=== PATIENT | female | born 1955 | race African-American/Black ===

== ENCOUNTER 2022-11-01 22:14 | Emergency (ER) | payer OTHER ==
[~2022-11-01] VITALS: Ht 160 cm; Wt 84.0 kg
[2022-11-01 22:27] VITALS: O2SAT 96
[2022-11-01 23:48] LABS: CHLORIDE 105 mEq/L (98-107); INDEX HEMOLYSI 1 (1-3); INDEX ICTERIC 1 (1-4); INDEX LIPEMIC 1 (1-3); POTASSIUM 3.1 mEq/L (3.5-5.1); SODIUM 139 mEq/L (136-145)
[2022-11-01 23:51] LABS: BASOPHILS % 0.4 % (0.0-2.0); EOSINOPHILS % 0.1 % (0.0-5.0); HEMATOCRIT. 37.4 % (36.0-48.0); HEMOGLOBIN. 11.9 g/dL (12.0-16.0); LYMPHOCYTES % 10.7 % (20.0-50.0); MEAN CORPUSCULAR HGB CONC 31.9 g/dL (31.0-37.0); MEAN CORPUSCULAR VOLUME 87.8 fL (81.0-99.0); MEAN PLATELET VOLUME 9.2 fl (7.4-10.4); MONOCYTES % 6.3 % (2.0-8.0); NEUTROPHILS % 82.5 % (40.0-76.0); PLATELET 208 x1000/uL (130-400); RED BLOOD CELL COUNT 4.26 mill/uL (4.2-5.4); RED CELL DISTRIBUTION WIDTH 15.2 % (11.6-14.6); WHITE BLOOD COUNT 8.6 x1000/uL (4.5-11.0)
[2022-11-01 23:57] LABS: ALANINE AMINOTRANSFERASE 30 IU/L (13-61); ALBUMIN 3.7 g/dL (3.4-5.0); ASPARTATE AMINOTRANSFERASE 36 IU/L (15-37); BILIRUBIN TOTAL 0.2 mg/dL (0.1-1.0); CALCIUM 9.7 mg/dL (8.5-10.1); CARBON DIOXIDE 24 mEq/L (21-32); ETHANOL BLOOD 193 mg/dL (-10); GLUCOSE 85 mg/dL (70-105); UREA NITROGEN BLOOD 20 mg/dL (7-21)
[2022-11-02] MEDS ORDERED: POTASSIUM CHLORIDE 20MEQ TABLET SR PO ONE (00:15)
[2022-11-02] MEDS ORDERED: MAGNESIUM OXIDE 400MG TABLET PO SCH (00:15)
[2022-11-02 04:38] VITALS: BP 132/70; PULSE 80; RESP 18; TEMP 97.9
== END 2022-11-02 04:39 | disposition home or self-care (01) ==
LOC: ER 22:14
DX: F10.129 Alcohol abuse with intoxication, unspecified (principal); Y90.6 Blood alcohol level of 120-199 mg/100 ml; R11.10 Vomiting, unspecified
CPT/HCPCS: 36415; 80053; 80320; 85025; 99283; G0480